=== PATIENT | female | born 1975 | race Caucasian/White ===

== ENCOUNTER → 2018-12-13 | Outpatient (CLI) | payer BC ==
[2018-12-16 10:17] LABS: Candida species (DNA Probe) Negative (NEGATIVE); G. vaginalis (DNA Probe) Negative (NEGATIVE); T. vaginalis (DNA Probe) Negative (NEGATIVE)
== END | disposition home or self-care (01) ==
LOC: LAB 17:45 → LAB SHORT 17:45
PROVIDERS: Obstetrics & Gynecology
DX: N89.8 Other specified noninflammatory disorders of vagina (principal); R30.0 Dysuria
CPT/HCPCS: 87070; 87086; 87147; 87205; 87480; 87510; 87660

== ENCOUNTER → 2019-01-10 | Outpatient (CLI) | payer BC | LOC: LAB 17:22 → LAB SHORT 17:22 | DX: R30.0 Dysuria (principal) | CPT/HCPCS: 87086 ==

== ENCOUNTER → 2019-03-15 | Outpatient (CLI) | payer BC ==
[2019-03-15 15:28] LABS: Bacteria Not Seen /hpf; Red Blood Cells, Urine Not Seen /hpf (0-2); Squamous Epithelial Cells Rare /hpf (Few); White Blood Cells, Urine 0-2 /hpf (0-5)
== END | disposition home or self-care (01) ==
LOC: LAB EV 14:45 → LAB SHORT 14:45
PROVIDERS: Nurse Practitioner
DX: R39.82 Chronic bladder pain (principal)
CPT/HCPCS: 81015

== ENCOUNTER → 2019-12-26 | Outpatient (CLI) | payer BC | END | disposition home or self-care (01) | LOC: LAB 17:31 → LAB SHORT 17:31 | PROVIDERS: Nurse Practitioner | DX: Z01.419 Encounter for gynecological examination (general) (routine) without abnormal findings (principal) | CPT/HCPCS: G0145 ==

== ENCOUNTER → 2022-07-10 | Outpatient (CLI) | payer BC | END | disposition home or self-care (01) | LOC: LAB 07:10 → LAB SHORT 07:10 | DX: Z13.1 Encounter for screening for diabetes mellitus (principal); N95.9 Unspecified menopausal and perimenopausal disorder; N94.6 Dysmenorrhea, unspecified; E78.5 Hyperlipidemia, unspecified; G43.009 Migraine without aura, not intractable, without status migrainosus; L65.9 Nonscarring hair loss, unspecified; Z83.3 Family history of diabetes mellitus | CPT/HCPCS: 85651 ==

== ENCOUNTER → 2022-07-22 | Outpatient (CLI) | payer BC | LOC: LAB SHORT 11:25 | DX: R30.0 Dysuria (principal) ==

== ENCOUNTER → 2023-01-05 | Outpatient (CLI) | payer BC | END | disposition home or self-care (01) | LOC: LAB SHORT 10:15 → LAB 10:15 → LAB SHORT 01-06 10:15 | DX: R30.0 Dysuria (principal) | CPT/HCPCS: 87077; 87086; 87186 ==

== ENCOUNTER → 2024-09-04 | Outpatient (CLI) | payer OTHER | LOC: LAB 08:33 → LAB SHORT 08:33 | DX: R30.0 Dysuria (principal); R35.0 Frequency of micturition | CPT/HCPCS: 87077; 87086; 87147; 87186 ==

== ENCOUNTER → 2024-10-09 | Outpatient (CLI) | payer OTHER | END | disposition home or self-care (01) | LOC: LAB 09:28 → LAB SHORT 09:28 | DX: R35.0 Frequency of micturition (principal); R30.0 Dysuria | CPT/HCPCS: 87077; 87086; 87186 ==

== ENCOUNTER → 2024-12-15 | Outpatient (CLI) | payer OTHER ==
[2024-12-15 15:22] LABS: Source, Urine Clean Catch
[2024-12-15 17:46] LABS: Bilirubin, Urine Neg (Neg); Blood, Urine Neg (Neg); Color, Urine Pale Yellow (P-Yellow); Glucose Qualitative, Urine Neg (Neg); Ketones, Urine Neg (Neg); Leukocyte Esterase, Urine 1+ (Neg); Nitrite, Urine Neg (Neg); Protein, Urine 1+ (Neg); Specific Gravity, Urine 1.005 (1.003-1.022); Urobilinogen, Urine NORM (Normal)
[2024-12-15 17:47] LABS: Appearance, Urine Hazy (Clear)
[2024-12-15 18:00] LABS: Red Blood Cells, Urine 0-2 /hpf (0-2); Squamous Epithelial Cells Few /hpf (Few)
[2024-12-15 18:01] LABS: Bacteria Many /hpf; Mucus Light (0-Heavy)
[2024-12-15 18:03] LABS: Transitional Epithelial Cells Rare /hpf (0-Rare)
== END | disposition home or self-care (01) ==
LOC: LAB SHORT 15:20 → LAB 15:20 → EDSTATUS 12-15 12:30 → LAB FUT 12-15 12:30
PROVIDERS: Physician Assistant
DX: N39.0 Urinary tract infection, site not specified (principal)
CPT/HCPCS: 81001; 87077; 87086; 87186